=== PATIENT | female | born 2000 | race American Indian/Alaskan Native ===

== ENCOUNTER 2021-03-06 09:37 | Emergency (ER) | payer SELFPAY ==
[2021-03-06] MEDS ORDERED: ALBUTEROL 2.5 MG/3 ML NEBU IH ONE ×5 (10:55→13:47)
[2021-03-06] MEDS ORDERED: IPRATROPIUM 0.02% NEBU 2.5 ML IH ONE ×2 (10:55→13:47)
--- NOTE | 2021-03-06 11:11 | Emergency Department Report ---
ED General Adult HPI - General Chief complaint: Upper Respiratory Infection Stated complaint: TROUBLE BREATHING Time Seen by Provider: 03/06/21 10:40 Source: patient Mode of arrival: Ambulatory Limitations: No Limitations - History of Present Illness Initial comments: 20-year-old female patient presents to the emergency department with complaints of shortness of breath for 2 days. No known sick contacts. No current steroid or antibiotic use. No recent travel. No medications prior to arrival. Patient did not receive her COVID-19 vaccination series. No known history of pre- existing lung disease. Denies fever, chills, nausea, vomiting, abdominal pain, chest pain, hemoptysis. Denies all other complaints at this time. - Related Data Previous Rx's Medication Instructions Recorded Last Taken Type Albuterol Sulfate [Proair 90 mcg IH Q4H #1 aer.pow.ba 03/06/21 Unknown Rx Respiclick] predniSONE [Deltasone] 40 mg PO QDAY #10 tab 03/06/21 Unknown Rx Allergies Allergy/AdvReac Type Severity Reaction Status Date / Time No Known Allergies Allergy Unverified 03/06/21 10:51 ED Review of Systems ROS: Stated complaint: TROUBLE BREATHING Other details as noted in HPI Other: GENERAL: Negative for fever, chills, weight change, anorexia, fatigue. ENT: Negative for ear pain, difficulty hearing, sore throat, nasal congestion, epistaxis. CARDIOVASCULAR: Negative for chest pain, palpitations, lower extremity swelling. PULMONARY: Positive for shortness of breath. GASTROINTESTINAL: Negative for abdominal pain, nausea, vomiting, diarrhea, constipation. MUSCULOSKELETAL: Negative for joint pain, joint swelling, myalgias, back pain, neck pain. NEUROLOGICAL: Negative for headache, seizure, syncope, paresthesias, weakness. INTEGUMENTARY: Negative for erythema, rash, diaphoresis, laceration, ecchymosis. HEMATOLOGICAL: Negative for hemoptysis, hematemesis, hematochezia, hematuria. PSYCHIATRIC: Negative for hallucinations, suicidal ideation, homicidal ideation, anxiety, depression. ED Past Medical Hx - Past Medical History Previous Medical History?: No - Medications Home Medications: Home Medications Medication Instructions Recorded Confirmed Last Taken Type Albuterol Sulfate [Proair 90 mcg IH Q4H #1 aer.pow.ba 03/06/21 Unknown Rx Respiclick] predniSONE [Deltasone] 40 mg PO QDAY #10 tab 03/06/21 Unknown Rx ED Physical Exam - General Limitations: No Limitations - Other Other exam information: General: Awake and alert. Tearful, anxious. Head: Atraumatic, normocephalic. Eyes: EOMI. Pupils are equal and round. Normal sclera and conjunctiva. ENT: Oral mucosa is moist. Normal pharyngeal exam. Neck: Supple. No lymphadenopathy. Pulmonary: No respiratory distress. Diffuse inspiratory and expiratory wheezing with diminished air movement bilaterally. No stridor. Cardiac: Tachycardic. Pulses are palpable and equal bilaterally. No lower extremity cyanosis or edema. Skin: Warm and dry. No rashes. Abdomen: Soft, non-tender, non-protuberant. No guarding, rigidity, or rebound. Bowel sounds are normal. No organomegaly or masses noted. Back: Normal alignment. No CVA tenderness. Extremities: Symmetrical. Full range of motion intact. Neurological: Alert and oriented, appropriately interactive, no focal deficits. Psych: Cooperative. Appropriate mood and affect. Speech is evenly metered. Thoughts are logically construed. ED Course Vital Signs 03/06/21 03/06/21 10:49 19:42 Temperature 99.2 F Pulse Rate 143 H Respiratory 18 Rate Blood Pressure 140/80 O2 Sat by Pulse 97 99 Oximetry ED Medical Decision Making - Lab Data Result diagrams: 03/06/21 11:25 03/06/21 11:25 - Radiology Data [facility] [address] [place] [address] Cat Scan Report Signed Patient: MARGOT ROMERO MR#: [id number] : 2000 Acct:[id number] Age/Sex: 20 / F ADM Date: 03/06/21 Loc: ED Attending Dr: Ordering Physician: CINDY GARCIA Date of Service: 03/06/21 Procedure(s): CT angio chest Accession Number(s): [id number] cc: CINDY GARCIA CTA CHEST WITH IV CONTRAST INDICATION: SOB, wheezing/rhonchi, tachycardia, normal CXR CONTRAST: 100 cc Omnipaque 350 IV COMPARISON: Chest x-ray today Three-plane MIP reconstructions were produced. All CT scans at this location are performed using CT dose reduction for ALARA by means of automated exposure control. FINDINGS: No significant axillary or chest wall abnormalities are seen. Visualized portions of the upper abdomen show no abnormalities. No mediastinal or hilar masses are seen. Mild density in the anterior mediastinum is thought residual thymic tissue in this young patient. No pleural effusions are seen. No obvious endobronchial lesions are noted. No pneumothorax or pneumomediastinum are seen. Focal interstitial infiltrate is seen in the right upper lobe inferomedially near the minor fissure. In the medial aspect of the left lower lobe there is mild interstitial infiltrate and atelectasis. No areas of consolidation are seen. No pulmonary nodules or masses are noted. Aorta shows no aneurysmal dilatation or evidence of dissection. Moderate opacification of the pulmonary arterial system was achieved. Some of the smaller arteries are more difficult to evaluate due to density but I do not see convincing evidence of pulmonary thromboembolism. IMPRESSION: 1. No convincing evidence of pulmonary thromboembolism 2. Evidence of mild bilateral interstitial pneumonitis which could include reno l pneumonitis Signer Name: Omar Mathews MD Signed: 03/06/2021 1:31 PM Workstation Name: [id number] Transcribed By: GJ Dictated By: Omar Mathews MD Electronically Authenticated By: Omar Mathews MD Signed Date/Time: 03/06/21 1331 DD/ 1327 TD/TT: - Medical Decision Making Differential diagnosis including but not limited to: pneumonia, pleural effusion, influenza, sepsis, asthma 10:56: Patient presents to the emergency department w/ complaints of shortness of breath. Tearful and anxious in triage with HR >140 and diminished breath sounds bilaterally. High clinical suspicion for COVID-19 infection in the absence of pre-existing lung condition. Ordered breathing treatment, chest x- ray, continuous pulse oximetry, satellite project site monitor, peripheral IV. Charge nurse aware of need for cardiopulmonary monitoring and examination room equipped for administering breathing treatment. 13:31: On re-evaluation, patient's symptoms are unchanged, as she has not yet received her breathing treatment. Chest x-ray unremarkable. Cannot clinically rule out PE using PERC criteria due to tachycardia. CTA of the chest shows no evidence of PE however focal interstitial infiltrates in the right upper and left lower lobe are suggestive of interstitial pneumonitis. Upon further interrogation, patient does not smoke and does not use any vape related products. She cannot recall any particular environmental or occupational exposu res which may have precipitated the symptoms. Respiratory therapist aware of need for breathing treatment. 14:03: Respiratory therapist is unavailable. Patient moved to treatment room and breathing treatment initiated by ED staff. 16:21: On reevaluation, patient is stable and states she feels much better. Repeat lung examination demonstrates significant improvement in air movement. Repeat heart rate 150 bpm. Suspect patient's tachycardia is partially attributable to the Albuterol. She will be given two liters of IV fluids and reassessed prior to final disposition. 17:56: Nurse and boom worker aware of need for IV fluids. 20:11: On reevaluation, patient is stable and continues to feel much better. Tachycardia resolved after IV fluids. Repeat heart rate 99 bpm. No clinical indication for further diagnostic work-up on an emergent basis at this time. Patient will be discharged home with beta agonist inhaler, oral steroids, and referral to pulmonology for close outpatient follow-up. Patient expressed understanding and is agreeable to plan of care. Strict return precautions provided. Repeat exam is unremarkable and benign. History, exam, diagnostic testing, and current condition do not suggest worrisome pathology to warrant further testing, continued ED treatment, admission, or surgical evaluation at this point. Given the low probability of a significant medical illness, it would be more likely to result in harm than benefit to perform further testing at this stage. Discussed findings, presumptive diagnosis, need for follow-up and specific signs/symptoms that should prompt immediate return to the emergency department. Instructions were explained in detail to the patient in addition to giving written discharge information. Patient expressed understanding and was given the opportunity to ask questions, all of which were satisfactorily answered prior to discharge home. Case discussed with Dr. New, attending emergency physician, who agrees with diagnostic work-up and plan of care. Critical care attestation.: If time is entered above; I have spent that time in minutes in the direct care of this critically ill patient, excluding procedure time. ED Disposition Clinical Impression: Pneumonitis Disposition: 01 HOME / SELF CARE / HOMELESS Is pt being admited?: No Does the pt Need Aspirin: No Condition: Stable Instructions: Pneumonitis Additional Instructions: Use Albuterol inhaler as directed. Take Prednisone with food as directed. Avoid environmental triggers, which may worsen your symptoms. Follow-up with Dr. Smith, bobbin winder tender, this week. Call Monday to schedule an appointment. See referral information below. Return to the emergency department immediately for new or worsening symptoms. Specifically, return to the emergency department immediately for fever, difficulty breathing, chest pain, rash, mental status changes, or any other concerns. Prescriptions: predniSONE [Deltasone] 40 mg PO QDAY #10 tab Albuterol Sulfate [Proair Respiclick] 90 mcg IH Q4H #1 aer.pow.ba Referrals: COLTEN SMITH MD [Staff Physician] - 3-5 Days Forms: Work/School Release Form(ED) Time of Disposition: 20:17
[2021-03-06 11:42] LABS: Basophils % (Auto) 0.1 % (0.0-1.8); Eosinophils # (Auto) 0.2 K/mm3 (0.0-0.4); Eosinophils % (Auto) 1.1 % (0.0-4.3); Hematocrit 40.6 % (30.3-42.9); Hemoglobin 13.6 gm/dl (10.1-14.3); Lymphocytes # (Auto) 0.8 K/mm3 (1.2-5.4); Mean Corpuscular HGB Conc 33 % (30-34); Mean Corpuscular Volume 100 fl (79-97); Monocytes # (Auto) 0.9 K/mm3 (0.0-0.8); Platelet Count 276 K/mm3 (140-440); Red Blood Count 4.06 M/mm3 (3.65-5.03)
[2021-03-06 12:02] LABS: Alanine Aminotransferase 12 units/L (7-56); Albumin 4.4 g/dL (3.9-5); Blood Urea Nitrogen 7 mg/dL (7-17); Calcium 9.9 mg/dL (8.4-10.2); Hemolysis Index 4
[2021-03-06 12:09] LABS: BUN/Creatinine Ratio 10
--- NOTE | 2021-03-06 12:21 | XRay Report ---
CHEST 2 VIEWS INDICATION / CLINICAL INFORMATION: SOB/tachycardia. COMPARISON: None available. FINDINGS: SUPPORT DEVICES: None. HEART / MEDIASTINUM: No significant abnormality. LUNGS / PLEURA: No significant pulmonary or pleural abnormality. No pneumothorax. ADDITIONAL FINDINGS: No significant additional findings. IMPRESSION: 1. No acute findings. Signer Name: Nitish Melgoza MD Signed: 03/06/2021 12:17 PM Workstation Name: [id number]
--- NOTE | 2021-03-06 13:35 | Cat Scan Report ---
CTA CHEST WITH IV CONTRAST INDICATION: SOB, wheezing/rhonchi, tachycardia, normal CXR CONTRAST: 100 cc Omnipaque 350 IV COMPARISON: Chest x-ray today Three-plane MIP reconstructions were produced. All CT scans at this location are performed using CT d ose reduction for ALARA by means of automated exposure control. FINDINGS: No significant axillary or chest wall abnormalities are seen. Visualized portions of the up per abdomen show no abnormalities. No mediastinal or hilar masses are seen. Mild density in the anter ior mediastinum is thought residual thymic tissue in this young patient. No pleural effusions are see n. No obvious endobronchial lesions are noted. No pneumothorax or pneumomediastinum are seen. Focal interstitial infiltrate is seen in the right upper lobe inferomedially near the minor fissure. In the medial aspect of the left lower lobe there is mild interstitial infiltrate and atelectasis. No areas of consolidation are seen. No pulmonary nodules or masses are noted. Aorta shows no aneurysmal dilatation or evidence of dissection. Moderate opacification of the pulmonary arterial system was achieved. Some of the smaller arteries ar e more difficult to evaluate due to density but I do not see convincing evidence of pulmonary thrombo embolism. IMPRESSION: 1. No convincing evidence of pulmonary thromboembolism 2. Evidence of mild bilateral interstitial pneumonitis which could include viral pneumonitis Signer Name: Omar Mathews MD Signed: 03/06/2021 1:31 PM Workstation Name: [id number]
[2021-03-06] MEDS ORDERED: BUDESONIDE 0.5 MG/2 ML NEBU IH ONE (13:42)
[2021-03-06] MEDS ORDERED: SODIUM CHLORIDE 0.9% 1000 ML 1,000 ML IV ONE ×2 (16:20)
[2021-03-06 20:36] VITALS: BP 112/67
== END 2021-03-06 21:10 | disposition home or self-care (01) ==
LOC: ED 09:37
DX: J18.9 Pneumonia, unspecified organism (principal); Z79.899 Other long term (current) drug therapy
CPT/HCPCS: 36415; 71046; 71275; 80053; 83735; 84703; 85025; 94640; 96360; 96361; 99284; J7030; Q9967

== ENCOUNTER 2022-02-06 17:13 | Outpatient (CLI) | payer OTHER ==
[2022-02-06 18:14] LABS: Bilirubin,Urine NEG (Negative); Blood,Urine MOD (Negative); Color,Urine Yellow (Yellow); Protein,Urine <15 mg/dL mg/dL (Negative)
[2022-02-06 18:17] LABS: Bacteria,Urine 1+ /HPF (Negative); Mucus,Urine 1+ /HPF
[2022-02-06] MEDS ORDERED: LACTATED RINGERS 500 ML IV ONE (18:30)
[2022-02-06 19:27] VITALS: BP 110/60
--- NOTE | 2022-02-06 19:39 | Ultrasound Report ---
ULTRASOUND OBSTETRIC LIMITED INDICATION / CLINICAL INFORMATION: Bleeding. - Clinical Gestational Age (GA) in weeks, days: 26, 5. TECHNIQUE: Transabdominal. COMPARISON: None available. FINDINGS: HEART RATE (beats per minute): 163 AMNIOTIC FLUID INDEX (cm) = 17.9 (normal = 7-24 cm) PRESENTATION: Cephalic. ADDITIONAL FINDINGS: Posterior placenta, grade 0, free of the os and without evidence of abruption. IMPRESSION: No significant abnormality. Signer Name: Sandro Epps MD Signed: 02/06/2022 7:34 PM Workstation Name: [id number]
== END 2022-02-06 20:16 | disposition home or self-care (01) ==
LOC: TRG 17:13 → APU 17:14 → TRG 20:16
PROVIDERS: ATTEND Obstetrics & Gynecology
DX: O26.852 Spotting complicating pregnancy, second trimester (principal); Z3A.26 26 weeks gestation of pregnancy
CPT/HCPCS: 76815; 81001